=== PATIENT | female | born 1950 | race Caucasian/White ===

== ENCOUNTER 2020-06-24 12:11 | Day surgery (SDC) | payer MEDICARE, OTHER, SELFPAY ==
--- NOTE | 2020-06-20 16:14 | EKG12_ITS ---
Test Reason : PREOP Blood Pressure : / mmHG Vent. Rate : 074 BPM Atrial Rate : 074 BPM P-R Int : 110 ms QRS Dur : 092 ms QT Int : 376 ms P-R-T Axes : 008 -29 023 degrees QTc Int : 417 ms Sinus rhythm with short VT Low voltage QRS Inferior infarct , age undetermined , cannot be excluded Abnormal ECG Confirmed by GARRET WOODWARD, SARATH ([id number]), editorial writer NAVARRO VALDEZ ([id number]) on 06/27/2020 11:59:05 AM Referred By: Gerard Alonso Confirmed By:SARATH COMBS MD
[2020-06-20 16:32] LABS: Hemoglobin 12.4 g/dL (12.0-15.0); Mean Corpuscular Hgb 29.5 pg (27.0-32.0); Mean Corpuscular Volume 95.2 fL (81-99); Mean Platelet Vol. 10.5 fl (6.2-12.0); Platelet Count 245 K/mm3 (150-450); RBC Distribution Width CV 15.1 % (11.6-14.6); RBC Distribution Width SD 53.6 fl (35.1-43.9); White Blood Count 6.6 K/mm3 (4.4-11.0)
[2020-06-20 16:52] LABS: Anion Gap 4 (5-15); BUN 25 mg/dL (7-18); Calcium,Total 8.7 mg/dL (8.5-10.1); Chloride 108 mmol/L (98-107); Creatinine, Serum 0.76 mg/dL (0.55-1.02); EST Glomerular Filtration Rate 80 mL/min (>60); Est Glom Filt Rate - Afr Amer 97 mL/min (>60); Glucose 92 mg/dL (74-106); Potassium 3.8 mmol/L (3.5-5.1); Sodium Level 143 mmol/L (136-145)
[2020-06-24 12:32] VITALS: BP 130/74; PULSE 63; RESP 14; TEMP 36.2; O2SAT 98; BMI 20.9
[2020-06-24] MEDS: Lactated Ringers 1,000 ML 100 ML IV (12:50)
[2020-06-24] MEDS: Oxymetazoline 0.05% 1 SPRAY SPRAY.BTL 3 SPRAY NASAL (12:51)
--- NOTE | 2020-06-24 13:54 | PCM.DC ---
You will use the following diet at home:: Regular Discharge Activity: - - No nose blowing Additional Activity Instructions:: Start irrigation tomorrow (4x/day) Allergies/Adverse Reactions: Allergies ondansetron [From Zofran] Allergy (Verified 06/04/20 15:16) Vomiting Medications to take at Discharge Fluticasone 0.05% [Flonase Nasal [place]] 2 spray NASAL DAILY 06/04/20 Primary Care Physician: Herrera Ratliff MD [Primary Care Provider] - Test Results: Test results from this visit will be discussed in further detail at your follow-up appointment, if applicable.
[2020-06-24] MEDS: Lidocaine 1%/Epi 1:200 (30ml) 30 ML AMPUL (14:11)
[2020-06-24] MEDS: Mupirocin Ointment 22gm Tube 1 APPLIC (15:04)
--- NOTE | 2020-06-24 15:05 | NASAL_PTH ---
PATIENT: RAYNA RICHARDSON LOC: [facility] – [place] U#:[id number] AGE/SX: 70/F ROOM: RE06/24/[address]: Dr. Gerard Alonso MD : 1950 BED: DIS: 06/24/2020 SPEC #: [id number] RECD: 06/25/20 08:04 STATUS: TUAN MIGUEL #: [id number] ANDREINA: 06/24/20 15:[address]: Gerard Alonso DEPT: SURGICAL PATHOLOGY RECD BY: Octavia Rico ENTERED: 06/25/20 08:51 SP TYPE: NASAL SPEC OTHR DR: Dr. Herrera Ratliff MD Tissues: A - Nasal septum, NOS B - Ethmoid sinus, NOS C - Ethmoid sinus, NOS D - Ethmoid sinus, NOS Procedures: Decalcification bone/plaque Special Stain Group I Surgery Specimen Level III GMS Stain (control) HEADER OPERATION: Right maxillary antrostomy with tissue removal PRE-OP DIAGNOSIS: Nasal congestion, nasal polyps, deviated septum, chronic sinusitis TISSUE SUBMITTED: A - Septum, B - Right sinus tissue, C - Right maxillary contents, D - Left sinus tissue MICROSCOPIC DIAGNOSIS A. Nasal septum, septoplasty: Fragments of hyaline cartilage and bone with focal reparative change (clinically deviated septum). B. Right sinus tissue, curettage: Necrotic material. Consistent with chronic sinusitis. Fungal organisms consistent with aspergillus. See comment. C. Right maxillary sinus contents, curettage: Necrotic material. Consistent with chronic sinusitis. Fungal organisms consistent with aspergillus. See comment. D. Left sinus contents, curettage: Necrotic material. Consistent with chronic sinusitis. Fragments of bone with no significant pathologic change. See comment. AM:oneil 07/02/20 COMMENT B-D. GMS stain with matched control was used in the evaluation of this case. MICROSCOPIC DESCRIPTION Slides are reviewed. GROSS DESCRIPTION A - Received in fixative is one container labeled with the patient's name and designated septum. The specimen consists of multiple fragments of bone and cartilage that in aggregate measure 3 x 2.5 x 0.3 cm. The entire specimen is submitted in one cassette after decalcification. B - Received in fixative is one container labeled with the patient's name and designated right sinus tissue. The specimen consists of multiple fragments of hemorrhagic soft tissue that in aggregate measure 3 x 2.5 x 0.3 cm. The specimen is totally submitted in one cassette. C - Received in fixative is one container labeled with the patient's name and designated right maxillary contents. The specimen consists of multiple fragments of hemorrhagic soft tissue mixed with fragments of bone that in aggregate measure 3 x 2.5 x 0.3 cm. The specimen is totally submitted in one cassette after decalcification. D - Received in fixative is one container labeled with the patient's name and designated left sinus tissue. The specimen consists of multiple irregular fragments of flor-brown soft tissue mixed with fragments of bone that in aggregate measure 2.5 x 1 x 0.1 cm. The specimen is totally submitted in one cassette after decalcification. / SJ:rg 06/25/20 TC:3 CPT: 78259 x4, 23991 x3, 21403 x3
--- NOTE | 2020-06-24 15:49 | OP.PCM_ITS ---
Report of Operation Date of Procedure: 06/24/20 Pre-Operative Diagnosis: chronic sinusitis. deviated septum. nasal airway obstruction Post-Operative Diagnosis: same Surgery/Procedure Performed:: Right maxillary antrostomy with tissue removal. Right anterior ethmoidectomy. Septoplasty. Left sphenoidotomy Type of Anesthesia:: General Anesthesiologist: Seth Corea Estimated Blood Loss (mL): minimal Description of Procedure: The patient was taken to the operating room on 06/24/2020. The patient was placed in the supine position on the operating table. The patient was given sufficient general endotracheal anesthesia. The head of bed was elevated 30 degrees. The navigation system was placed and verified per protocol and found to be accurate. 0 and 30 degrees rigid nasal endoscopes were used throughout the entire case. The septum, middle turbinate uncinate process and polyps were injected with 1% lidocaine with epinephrine bilaterally. The right middle turbinate was medialized with a [place] elevator. Polyp was removed from the middle meatus using a sinus shaver, this was extending into the nasopharynx. A ball-tipped sinus seeker was placed into the patient's maxillary sinus. The uncinate process was taken down using a microdebrider. Polyp and fungus were removed from the maxillary sinus using a microdebrider with a 70 degree rigid nasal endoscope for visualization. Next, the ethmoid bulla was opened with a small curette. Anterior ethmoidectomy were then carried out using curette, sinus shaver and 45 degree Blakesley Dee forceps. Ethmoid cells were verified for relation to the skull base and orbit prior to being entered with the navigation system. I then placed Afrin pledgets into the sinonasal cavity. A right hemitransfixion incision was made with a 15 blade. A plane was established on the left side of the septum by elevating mucoperichondrium off of the quadrangular cartilage. This was completed with a [place] elevator. There was a large septal spur anteriorly and a large posterior septal spur both on the left side. I then the bony cartilaginous junction and created a plane on the right side by elevating mucoperichondrial with a [place] elevator. Next the deviated portions of the septum were removed using open Cristhian-Rosa forceps including the 2 septal spurs. Hemostasis achieved with Afrin pledgets as well as Charline. Next attention was turned to the left side. The sphenoid was then opened on the left side using a sinus shaver and confirmed with navigation. The sphenoid sinus did not have any fungal elements within. Hemostasis was then achieved using Afrin pledgets. The pledgets were then removed bilaterally and Charline powder was applied bilaterally for absolute hemostasis. I tacked the mucosa together on the left-hand side with a 4-0 chromic. The right hemitransfixion incision was closed with interrupted 4-0 chromic. Taveras nasal splints were applied to each side of the septum and sewn through and through with 3-0 silk. The procedure was then terminated. The patient was then awoken and brought to the recovery room in stable condition blood loss less than 30 cc replacement none. Sponge, needle, instrument count were correct at the end of the procedure.
[2020-06-24 16:01] VITALS: BP 130/74; BP 158/97; PULSE 83; RESP 16; TEMP 36.5; O2SAT 97
[2020-06-24 16:15] VITALS: BP 130/74; BP 159/93; PULSE 57; RESP 16; O2SAT 96
[2020-06-24 16:31] VITALS: BP 130/74; BP 156/74; PULSE 54; RESP 16; O2SAT 99
[2020-06-24 16:43] VITALS: BP 130/74; BP 149/83; PULSE 54; RESP 16; TEMP 37.2; O2SAT 97
[2020-06-24 17:31] VITALS: BP 130/74; BP 141/74; PULSE 56; RESP 16; TEMP 36.3; O2SAT 96
== END 2020-06-24 17:41 | disposition home or self-care (01) ==
LOC: SDC 12:11 → AC 12:12
PROVIDERS: PCP Family Medicine; Referring Provider Otolaryngology; Visit Provider Otolaryngology
PROC: (CPT 30520; principal; 2020-06-24 14:35)
DX: J34.2 Deviated nasal septum (principal); J33.0 Polyp of nasal cavity; J32.8 Other chronic sinusitis; Z20.828 Contact with and (suspected) exposure to other viral communicable diseases; G25.81 Restless legs syndrome; Z86.2 Personal history of diseases of the blood and blood-forming organs and certain disorders involving the immune mechanism; Z85.3 Personal history of malignant neoplasm of breast; Z78.0 Asymptomatic menopausal state
CPT/HCPCS: 00160; 30520; 31254; 31267; 31287; 61782; 36415; 80048; 85027; 87426; 88304; 88305; 88311; 88312; 93005; C9803; J7120

== ENCOUNTER → 2024-06-07 | Outpatient (CLI) | payer MEDICARE, OTHER, SELFPAY ==
--- NOTE | 2024-06-07 | IMM_PTH ---
PATIENT: RAYNA RICHARDSON LOC: [facility] U#:[id number] AGE/SX: 74/F ROOM: RE06/07/[address]: Dr. Caridad Rehman MD : 1950 BED: DIS: 06/07/2024 SPEC #: [id number] RECD: 06/08/24 12:08 STATUS: TUAN REQ #: [id number] ANDREINA: 06/07/24 00:[address]: Caridad Rehman DEPT: IMMUNOHISTOCHEMISTRY RECD BY: Papo Forman ENTERED: 06/08/24 12:11 SP TYPE: IMMUNO OTHR DR: MILA Sheikh Tissues: A - Left breast, NOS B - Left breast, NOS Procedures: CALPONIN-1 (add) CK5-6 (add) CK8 (add) E-CAD (add) ER (add) HER2 OLIVER (add) KI-67 (add) P53 (add) WV (add) P40 (add) MOC-31 (add) ER (initial) WV (initial) PHYSICIAN & [address] [address] SPECIMEN INFORMATION: Tissue Source: A- Left breast 12o'clock, B- Left breast 2o'clock Clinical Info: Biopsy of left breast lesions, history of lumpectomy 1990, status post chemotherapy/radiation Specimen Number: [id number] A, B CPT code: 33672i9,30015x2,98287l07 METHODOLOGY: Deparaffinized sections of prefer/formalin-fixed tissue or PAP/DQ stained slides are incubated with monoclonal/polyclonal antibodies/oligonucleotide probes. Localization is made via biotin free immunoperoxidase method. Appropriate controls are performed and reacted as expected. Results on target cell population are indicated in the following table: RESULTS: ANTIBODY / CLONE RESULT Block A P53 (DO-7) positive, indeterminate type Ki-67 (30-9) positive, 35% CK8 (04sagaO76) positive CK5-6 (D5 & 1684) positive, focal Calponin-1 (ZP782V) negative P40 (BC28) negative E-Cad (ECH-6) positive MOC-31 (4561) positive, dim MORPHOMETRIC ANALYSIS ER (clone 6F11) 0% WV (clone 16/1E2) 15%, dim intensity Her-2Neu (clone CB11) 0-1+ The prognostic test for HER2 is performed on formalin-fixed paraffin embedded tissue. A 3+ (positive) staining pattern is defined as intense, homogeneous, complete, circumferential membranous staining in >10% of contiguous tumor cells. A similar weak (2+) staining pattern is interpreted as equivocal. MT follow-up testing is recommended for all equivocal cases. Positivity/negativity for ER/WV is reported if > or < 1% of the tumor cells are immuno- reactive, respectively. The ASCO/CAP criteria is used for scoring. Reference: Journal of Clinical Oncology, 2013; 31:1083-2014 & 2010; 16:3401-8473. Ischemic time: Less than one hour. Duration of fixation: __ Hrs; Sample Adequate: Yes. These assays have not been validated on decalcified tissues. Results should be interpreted with caution given the likelihood of false negativity on decalcified specimens or fixation greater than 72 hours. Alternative testing methods (FISH/dualISH for Her2; gene expression for ER) are recommended, if applicable. Please notify the laboratory if additional testing is required. Block B P53 (DO-7) positive, indeterminate type Ki-67 (30-9) positive, 85% CK8 (64vwmfN20) positive CK5-6 (D5 & 1684) positive, focal Calponin-1 (SF186Q) negative P40 (BC28) negative E-Cad (ECH-6) positive MOC-31 (4561) positive, dim MORPHOMETRIC ANALYSIS ER (clone 6F11) 5%, dim intensity WV (clone 16/1E2) 0% Her-2Neu (clone CB11) 0-1+ The prognostic test for HER2 is performed on formalin-fixed paraffin embedded tissue. A 3+ (positive) staining pattern is defined as intense, homogeneous, complete, circumferential membranous staining in >10% of contiguous tumor cells. A similar weak (2+) staining pattern is interpreted as equivocal. MT follow-up testing is recommended for all equivocal cases. Positivity/negativity for ER/WV is reported if > or < 1% of the tumor cells are immuno- reactive, respectively. The ASCO/CAP criteria is used for scoring. Reference: Journal of Clinical Oncology, 2013; 31:6302-7358 & 2010; 16:5734-0200. Ischemic time: Less than one hour. Duration of fixation: __ Hrs; Sample Adequate: Yes. These assays have not been validated on decalcified tissues. Results should be interpreted with caution given the likelihood of false negativity on decalcified specimens or fixation greater than 72 hours. Alternative testing methods (FISH/dualISH for Her2; gene expression for ER) are recommended, if applicable. Please notify the laboratory if additional testing is required. These tests were developed and their performance characteristics determined by [facility]. They may not have been cleared or approved by the U.S. Food and Drug Administration. The FDA has determined that such clearance or approval is not necessary. The above immunohistochemical/dualISH markers are ordered and reviewed by the Pathologist. INTERPRETATION: A. Left breast, 12o'clock, 4cm from nipple, core biopsy: Invasive ductal carcinoma, grade 2. B. Left breast, 2o'clock, 6cm from nipple, core biopsy: Invasive ductal carcinoma, grade 2. AM. 06/09/2024
--- NOTE | 2024-06-07 10:00 | BRBX_PTH ---
PATIENT: RAYNA RICHARDSON LOC: [facility] U#:[id number] AGE/SX: 74/F ROOM: RE06/07/[address]: Dr. Caridad Rehman MD : 1950 BED: DIS: 06/07/2024 SPEC #: [id number] RECD: 06/07/24 10:36 STATUS: TUAN RETrudi #: [id number] ANDREINA: 06/07/24 10:[address]: Caridad Rehman DEPT: SURGICAL PATHOLOGY RECD BY: Paulo Ramirez ENTERED: 06/07/24 11:38 SP TYPE: BREAST BX OTHR DR: MILA Sheikh Tissues: A - Left breast, NOS B - Left breast, NOS Procedures: Surgery Specimen Level IV HEADER OPERATION: Punch biopsy of left breast lesions x2 PRE-OP DIAGNOSIS: Biopsy of left breast lesions, history of lumpectomy 1990, status post chemotherapy/radiation TISSUE SUBMITTED: A- Left breast tissue, 12o'clock, 4cm from nipple, B- Left breast tissue, 2o'clock, 6cm from nipple Ischemic Time: 1 minute Fixation Time: 10 hours MICROSCOPIC DIAGNOSIS A. Left breast at 12o'clock, core biopsy: Invasive ductal carcinoma. See synoptic report below. B. Left breast at 2o'clock, core biopsy: Invasive ductal carcinoma. See synoptic report below. AM 06/08/2024 COMMENT A. INVASIVE BREAST CANCER SUMMARY: Procedure: Needle core biopsy Specimen Laterality: Left breast Tumor site: 12o'clock Histologic type: Invasive ductal carcinoma Provisional Histologic grade: 2 Tubule Differentiation Score: 3 Nuclear Pleomorphism Score: 3 Mitotic Rate Score:1 Tumor Size ( greatest dimension): 13.0mm Ductal Carcinoma In situ: Not identified Angiolymphatic Invasion: Not identified Microcalcifications: Not identified Additional Findings: Mild chronic inflammation Breast Marker Study: [id number] ER: Negative; 0% TX: 15%, dim intensity Her2: negative Ki67:35% [id number]: N/A The above summary is in compliance with [employer] [place] [employer] (CAP) Cancer Protocols Checklist and [place] Joint Committee on Cancer (AJCC), Staging Manual, 8th Ed. B. INVASIVE BREAST CANCER SUMMARY: Procedure: Needle core biopsy Specimen Laterality: Left breast Tumor site: 12o'clock Histologic type: Invasive ductal carcinoma Provisional Histologic grade: 2 Tubule Differentiation Score: 3 Nuclear Pleomorphism Score: 3 Mitotic Rate Score:1 Tumor Size ( greatest dimension): 11.0mm Ductal Carcinoma In situ: Not identified Angiolymphatic Invasion: Not identified Microcalcifications: Not identified Additional Findings: Mild chronic inflammation Breast Marker Study: [id number] ER:5% TX: Negative (0%) Her2: Negative Ki67:85% [id number]: N/A The above summary is in compliance with [employer] [place] [employer] (CAP) Cancer Protocols Checklist and [place] Joint Committee on Cancer (AJCC), Staging Manual, 8th Ed. MICROSCOPIC DESCRIPTION Slides are reviewed. GROSS DESCRIPTION A. Received in fixative is one container labeled with the patient's name and designated Left breast - 12o'clock. The specimen consists of three cores of light flor soft tissue. Each core has an average length of 1.2cm and 0.2cm maximal diameter. The specimen is totally submitted in one cassette.B. Received in fixative is one container labeled with the patient's name and designated Left breast- 2o'clock. The specimen consists of multiple irregular and elongated fragments of flor-yellow soft tissue that in aggregate measure 2.0 x 0.5 x 0.1 cm. The specimen is totally submitted in one cassette. 06/07/2024 TC:0 [facility]:[id number] ADDENDUM ADDENDUM ADDENDUM ADDENDUM ADDENDUM ADDENDUM ADDENDUM ADDENDUM ADDENDUM ADDENDUM ADDENDUM ADDENDUM ADDENDUM ADDENDUM ADDENDUM ADDENDUM 07/17/2024 08:59 ADDENDUM 07/17/2024 08:59 ADDENDUM 07/17/2024 08:59 ADDENDUM 07/17/2024 08:59 ADDENDUM 07/17/2024 08:59 This addendum is added to incorporate an outside pathology consultation report. The case was examined at [facility] (#[id number]) and the following diagnosis was rendered. A. Breast, left, 12o'clock, biopsy: Invasive ductal carcinoma, provisional Clark grade 2-3, measuring at least 10mm in greatest dimension. Ductal carcinoma in situ, high-grade (nuclear grade 3), with cribriform architectural pattern and foci of necrosis. B. Breast, left, 2o'clock, biopsy: Invasive ductal carcinoma, provisional Clark grade 2-3, measuring at least 6mm in greatest dimension. Please see complete above mentioned consultation report in EMR
== END | disposition home or self-care (01) ==
LOC: LABSPEC 10:59
PROVIDERS: PCP Physician Assistant; Referring Provider Surgery; Visit Provider Surgery
DX: C50.812 Malignant neoplasm of overlapping sites of left female breast (principal); C50.412 Malignant neoplasm of upper-outer quadrant of left female breast
CPT/HCPCS: 81002; 88305; 88341; 88342

== ENCOUNTER → 2024-06-30 | Outpatient (CLI) | payer MEDICARE, OTHER, SELFPAY ==
--- NOTE | 2024-06-30 10:19 | MRI_ITS ---
STUDY: BILATERAL BREAST MR WITHOUT AND WITH CONTRAST REASON FOR EXAM: Female, 74 years old. Left breast masses on ultrasound, positive for breast cancer. Workup. TECHNIQUE: Multi-sequence multi-echo imaging of both breasts was performed with a dedicated breast coil. T1-weighted and T2-weighted images were performed before the administration of contrast. T1-weighted images were also performed after the intravenous administration of 17 cc of Clariscan contrast. COMPARISON: Prior breast ultrasounds dated June 07 and June 05, 2024. FINDINGS: RIGHT BREAST: Scattered fibroglandular density with no background enhancement. No abnormal enhancing masses or areas of non-mass enhancement in the right breast. LEFT BREAST: Scattered fibroglandular density with no significant background enhancement. Multiple irregular enhancing masses in the left breast as described below: 12:00 position, 5.6 cm from the nipple is an enhancing irregular mass measuring 11.5 mm x 9.5 mm x 2.1 cm with apparent tissue clip marker artifact present. 4 mm in diameter enhancing mass slightly posterior and lateral to 12:00 enhancing mass approximately 5.8 cm from the nipple measuring 4 mm in diameter (axial series 501 image 99, sagittal series 7 image 11). Posterior to the 12:00 position 6.4 cm from the nipple is another irregular enhancing mass measuring 1 cm x 1.4 cm x 1.3 cm. Slightly inferior and lateral to this mass are 2 satellite enhancing masses one measuring 6 mm in diameter and the other measuring 3 mm in diameter (axial series 501 image 119, sagittal series 7 images 12-14). Slightly posterior and lateral to these lesions is another irregular enhancing mass measuring 8 mm x 7 mm x 9 mm located 6.6 cm from the nipple. Another irregular enhancing mass slightly medial and inferior 4.7 cm from the nipple measuring 5 mm in diameter is present (axial series 501 image 135). A smaller enhancing mass more inferiorly measuring 5 mm in diameter located 4.2 cm from the nipple is present. In the subareolar region slightly laterally is an enhancing mass measuring 1.3 cm x 1.1 cm x 9 mm (axial series 501 image 159). A smaller enhancing mass slightly posterior and lateral to the subareolar mass measuring 5.5 mm in diameter is present (sagittal series 7 image 11). Prominent left axillary lymph nodes, slightly greater in size than on the right are present (axial series 501 image 73).. No abnormality in the visualized regions of the chest or liver. MRI/Breast Bilateral W/O and W IMPRESSION: Multicentric involvement of the left breast with a total of 9 irregular enhancing and involvement of all quadrants of the breast. Slight prominence of the left lymph nodes. Right breast shows no abnormality. CATEGORY: BIRADS Category 6: Known Biopsy-Proven Malignancy - Appropriate Action Should Be Taken. A letter regarding these results will be sent to the patient by the facility within 30 days. Electronically Signed: Cristhian Hu MD at 13:34 EST ,
[2024-06-30 11:02] LABS: CREATININE FINGERSTICK < 1.0 mg/dL (0.55-1.02); EGFR FINGERSTICK > 60.0000 mL/min (>60)
== END | disposition home or self-care (01) ==
PROVIDERS: PCP Physician Assistant; Referring Provider Surgery; Visit Provider Surgery
DX: N63.20 Unspecified lump in the left breast, unspecified quadrant (principal); Z85.3 Personal history of malignant neoplasm of breast
CPT/HCPCS: 77049; A9575; A4216; C8908

== ENCOUNTER → 2024-07-04 | Outpatient (CLI) | payer MEDICARE, OTHER, SELFPAY ==
--- NOTE | 2024-07-04 06:30 | PET_ITS ---
EXAMINATION: FDG PET-CT INDICATIONS: A 74-year-old female with history of primary breast carcinoma presenting for apparent initial staging examination. COMPARISON EXAMINATION: None available INDEX LESION SIZE SUV INTERPRETATION Left breast (n=3) 18.1-mm (largest) 6.9 (max) Fulfills quantitative criteria for viable neoplasm Bilateral hemithorax pulmonary parenchyma 1.5 (max) Quantitative criteria for viable neoplasm are not fulfilled TECHNIQUE: Following the intravenous administration of 13.55 mCi of F-18 deoxyglucose via the right antecubital fossa, multiplanar image acquisitions of the neck, chest, abdomen and pelvis to level of mid thigh, obtained at one hour post radiopharmaceutical administration contemporaneously interpreted with the current CT of the neck, chest, abdomen and pelvis, to level of mid thigh, dated 07/04/24 via coregistration reveals: BLOOD GLUCOSE LEVEL:?? 127 mg/dl?HEIGHT:?64 inches?WEIGHT: 121 lbs. FINDINGS: HEAD/NECK: There is no evidence of abnormal increased glucose metabolism in the pharyngeal mucosal space, parapharyngeal space, bilateral-lateral and anterior neck, hypopharynx and distribution of the laryngeal structures. The visualized portion of the cerebral cortical-subcortical structures demonstrate symmetric and preserved glucose metabolism. CHEST: Nodular foci of increased labeled glucose uptake are noted in the left breast. The calculated maximal standard uptake value is 6.9. The largest metabolic, morphologic abnormality demonstrates a maximal axial diameter of 18.1-mm. Nodular densities defined in the bilateral hemithorax pulmonary parenchyma demonstrate a calculated maximal standard uptake value of 1.5. Quantitative criteria for neoplastic transformation are not fulfilled. Pertinent chest CT findings are as follows. There is atherosclerotic calcification defined in the thoracic aorta without evidence of dilatation-aneurysm formation. Coronary arterial calcification is observed. Bilateral axillary soft tissue densities are ametabolic. ABDOMEN/PELVIS: Normal physiologic distribution of the radiopharmaceutical is apparent in the hepatic (3.0) and splenic parenchyma, both renal units, bladder and visualized intestinal tract. Pertinent abdomen and pelvis CT findings are as follows. Calcification is noted within the uterus to the left of the midline. There is atherosclerotic calcification defined in the abdominal aorta without evidence of dilatation-aneurysm formation. Pelvic arterial calcification is observed. Right and left inguinal soft tissue densities are ametabolic. SKELETAL: Right hip arthroplasty is defined. Degenerative changes are noted in the cervical, thoracic and lumbar spine without evidence of increased radiopharmaceutical concentration. A Type 1 L4 and L5 anterolisthesis is demonstrated. PET/PET/CT Tumor Base -Thigh Init IMPRESSION: 1. ABNORMAL EXAMINATION INDICATIVE OF MALIGNANT VIABLE NEOPLASM. 2. Enhanced tracer uptake noted in three separate locations within the left breast fulfill quantitative criteria for viable neoplasm. 3. The parenchymal changes noted in the bilateral hemithorax do not fulfill quantitative criteria for neoplastic transformation. Electronic Signature Juanito Smith D.O. Electronically Signed: Juanito Smith DO at 21:21 EST ,
== END | disposition home or self-care (01) ==
LOC: ONC 06:15
PROVIDERS: PCP Physician Assistant; Referring Provider Surgery; Visit Provider Surgery
DX: C50.812 Malignant neoplasm of overlapping sites of left female breast (principal)
CPT/HCPCS: 78815; A9552